=== PATIENT | male | born 1990 | race Caucasian/White ===

== ENCOUNTER 2016-12-22 08:31 | Emergency (ER) | payer OTHER ==
[~2016-12-22] VITALS: Ht 180.3 cm; Wt 73.0 kg
[2016-12-22 11:54] LABS: HEMOGLOBIN 16.6 g/dL (13.7-18.0); WHITE BLOOD COUNT 9.1 x10^3/uL (3.4-10)
[2016-12-22 12:07] LABS: BLOOD UREA NITROGEN 8 mg/dL (7-18)
[2016-12-22 12:09] LABS: ACETAMINOPHEN < 2 mcg/mL (10-30)
[2016-12-22 13:58] VITALS: BP 111/61
== END 2016-12-22 14:01 | disposition home or self-care (01) ==
LOC: ED 13:22
DX: F10.129 Alcohol abuse with intoxication, unspecified (principal); F12.10 Cannabis abuse, uncomplicated; F17.210 Nicotine dependence, cigarettes, uncomplicated
CPT/HCPCS: 36415; 80048; 80307; 80329; 82040; 85025; 99284; G0480